=== PATIENT | male | born 1985 | race Caucasian/White ===

== ENCOUNTER 2016-05-02 14:41 | Emergency (ER) | payer BC ==
[2016-05-02 14:51] VITALS: BP 145/62; PULSE 77; RESP 18; TEMP 98; O2SAT 97
--- NOTE | 2016-05-02 15:29 | UCPHY ---
H & P Patient Type: New Chief Complaint Nursing Narrative: poping nuckles while @ work friday - felt sharp pain after inc. since then. Time Seen by Provider: 05/02/16 15:19 HPI/ROS: CHIEF COMPLAINT: Finger pain HISTORY OF PRESENT ILLNESS: The patient is a 30-year-old man who comes to the Urgent Care complaining of pain at his right MCP joint for the last 3 days. He states that he was popping his knuckles on Friday when he bent his finger backwards and the pop was unusual. Since that time has had mild pain in the knuckle and mild swelling. Normal range of motion and strength and sensation. Normal capillary refill. REVIEW OF SYSTEMS: Constitutional: denies: chills, fever, recent illness, recent injury EENTM: denies: blurred vision, double vision, nose congestion Respiratory: denies: cough, shortness of breath Cardiac: denies: chest pain, irregular heart rate, lightheadedness, palpitations Gastrointestinal/Abdominal: denies: abdominal pain, diarrhea, nausea, vomiting, blood streaked stools Genitourinary: denies: dysuria, frequency, hematuria, pain Musculoskeletal: See HPI Skin: denies: lesions, rash, jaundice, bruising Neurological: denies: headache, numbness, paresthesia, tingling, dizziness, weakness Hematologic/Lymphatic: denies: blood clots, easy bleeding, easy bruising Immunologic/allergic: denies: HIV/AIDS, transplant EXAM: GENERAL: Well-appearing, well-nourished and in no acute distress. HEAD: Atraumatic, normocephalic. EYES: Pupils equal round and reactive to light, extraocular movements intact, sclera anicteric, conjunctiva are normal. ENT: TMs normal, nares patent, oropharynx clear without exudates. Moist mucous membranes. NECK: Normal range of motion, supple without lymphadenopathy or JVD. LUNGS: Breath sounds clear to auscultation bilaterally and equal. No wheezes rales or rhonchi. HEART: Regular rate and rhythm without murmurs, rubs or gallops. ABDOMEN: Soft, nontender, normoactive bowel sounds. No guarding, no rebound. No masses appreciated. BACK: No CVA tenderness, no spinal tenderness, step-offs or deformities EXTREMITIES: Mild pain at MCP of index finger right hand. No visible swelling. Normal range of motion. Normal strength. Normal sensation, normal capillary refill. Normal range of motion, no pitting or edema. No clubbing or cyanosis. NEUROLOGICAL: Cranial nerves II through XII grossly intact. Normal speech, normal gait. 5/5 strength, normal movement in all extremities, normal sensation PSYCH: Normal mood, normal affect. SKIN: Warm, dry, normal turgor, no visible rashes or lesions. Source: Patient Exam Limitations: No limitations - Personal History Tetanus Vaccine Date: 2006? - Medical/Surgical History Hx Asthma: No Hx Chronic Respiratory Disease: No Hx Diabetes: No Hx Cardiac Disease: No Hx Renal Disease: No Hx Cirrhosis: No Hx Alcoholism: No Hx HIV/AIDS: No Hx Splenectomy or Spleen Trauma: No Other PMH: WPW, ABLATION, CARDIAC MUSCLES REQUIRE ADDITIONAL ABLATION 03-21-14. fx rt lower leg December 2013, infection Feb 2014 - Family History Significant Family History: No pertinent family hx - Social History Smoking Status: Never smoked Alcohol Use: None Drug Use: None Constitutional: Initial Vital Signs Temperature (C) 36.6 C 05/02/16 14:48 Heart Rate 77 05/02/16 14:48 Respiratory Rate 18 05/02/16 14:48 Blood Pressure 145/62 H 05/02/16 14:48 O2 Sat (%) 97 05/02/16 14:48 Allergies/Adverse Reactions: No Known Allergies Allergy (Verified 08/22/14 15:11) Home Medications: Medication Instructions Recorded Aspirin [Aspirin 325 mg (*)] 325 mg PO DAILY #0 tab 03/23/14 Diltiazem HCl [Diltiazem ER] 240 mg PO DAILY #0 cap.sr.[id number] 03/23/14 Medical Decision Making - Diagnostics Imaging: X-ray: Hand x-ray was obtained. I viewed the images myself on the PACS system. My interpretation of the images is: Negative. The radiologist interpretation is pending. Procedures: Procedure: Splint placement. A aluminum finger splint was applied with the MCP joint semi flexed. After application of the splint I returned and re-examined the patient. The splint was adequately immobilizing the joint and distal to the splint the patient's circulation and sensation was intact. ED Course/Re-evaluation: The patient has normal functioning of his finger. He states that feels like he cannot completely bend it. I will splint his hand in a flexed position have him follow up with Hand surgery in case he has a flexor tendon or tendon sheath tear. His exam is normal. His x-ray is normal. He is relieved with this plan. Agrees to follow-up. Differential Diagnosis: Partial list of the Differential diagnosis considered include but were not limited to; tendon injury, fracture, dislocation, tendonitis, tendon sheath injury and although unlikely based on the history and physical exam, I also considered infection, foreign body, trigger finger. I discussed these differential diagnoses and the plan with the patient as well as the usual and expected course. The patient understands that the diagnosis is provisional and that in medicine we are not always correct and that further workup is often warranted. Usual and customary warnings were given. All of the patient's questions were answered. The patient was instructed to return to the emergency department should the symptoms at all worsen or return, otherwise to followup with the physician as we discussed. Departure - Departure Disposition: Home, Routine, Self-Care Clinical Impression: Hand pain Qualifiers: Laterality: right Qualified Code(s): M79.641 - Pain in right hand Condition: Fair Instructions: Finger Sprain (ED) Additional Instructions: Follow-up with a hand surgeon as we discussed to rule out injury to year flexor tendon or tendon sheath. Referrals: NONE *PRIMARY CARE P,. [Primary Care Provider] - As per Instructions Carson Gilbert MD [Medical Doctor] - As per Instructions - PQRS PQRS Measurement: Not applicable
== END 2016-05-02 15:35 | disposition home or self-care (01) ==
LOC: CED 14:41
DX: S63.618A Unspecified sprain of other finger, initial encounter (principal); X50.9XXA Other and unspecified overexertion or strenuous movements or postures, initial encounter
CPT/HCPCS: 29130-PO; 73130-PO; 99204-PO; G0463-PO